=== PATIENT | male | born 1945 | race Native Hawaiian/Other Pacific Islander ===

== ENCOUNTER 2018-05-21 07:48 | Day surgery (SDC) | payer OTHER, BC | END 2018-05-21 09:37 | disposition home or self-care (01) | LOC: OR 07:48 | PROC: 3E0R33Z Introduction of Anti-inflammatory into Spinal Canal, Percutaneous Approach (ICD-10-PCS; principal; 2018-05-21) | PROC: B01BYZZ Fluoroscopy of Spinal Cord using Other Contrast (ICD-10-PCS; 2018-05-21) | DX: M54.16 Radiculopathy, lumbar region (principal); M48.061 Spinal stenosis, lumbar region without neurogenic claudication | CPT/HCPCS: J1020 ==

== ENCOUNTER 2018-09-30 08:39 | Day surgery (SDC) | payer OTHER, BC ==
[~2018-09-30] VITALS: Ht 30.5 cm; Wt 0.5 kg
== END 2018-09-30 10:50 | disposition home or self-care (01) ==
LOC: OR 08:39
PROC: 3E0R33Z Introduction of Anti-inflammatory into Spinal Canal, Percutaneous Approach (ICD-10-PCS; principal; 2018-09-30)
PROC: 3E0R3BZ Introduction of Anesthetic Agent into Spinal Canal, Percutaneous Approach (ICD-10-PCS; 2018-09-30)
DX: M53.3 Sacrococcygeal disorders, not elsewhere classified (principal); M46.1 Sacroiliitis, not elsewhere classified
CPT/HCPCS: J1020; J3490

== ENCOUNTER 2018-10-14 07:32 | Day surgery (SDC) | payer OTHER, BC ==
[~2018-10-14] VITALS: Ht 30.5 cm; Wt 0.5 kg
== END 2018-10-14 08:55 | disposition home or self-care (01) ==
LOC: OR 07:32
PROC: 3E0R33Z Introduction of Anti-inflammatory into Spinal Canal, Percutaneous Approach (ICD-10-PCS; principal; 2018-10-14)
PROC: 3E0R3BZ Introduction of Anesthetic Agent into Spinal Canal, Percutaneous Approach (ICD-10-PCS; 2018-10-14)
DX: M53.3 Sacrococcygeal disorders, not elsewhere classified (principal); M46.1 Sacroiliitis, not elsewhere classified
CPT/HCPCS: J1020; J3490

== ENCOUNTER 2019-01-20 07:16 | Day surgery (SDC) | payer OTHER, BC ==
[~2019-01-20] VITALS: Ht 30.5 cm; Wt 0.5 kg
[2019-01-20 09:13] LABS: PLATELET COUNT 310 K/uL (142-355)
[2019-01-20 09:19] LABS: POTASSIUM 4.1 mmol/L (3.6-5.2)
[2019-01-20 09:30] LABS: PARTIAL THROMBOPLASTIN TIME 29.4 SECONDS (24.5-33.6)
== END 2019-01-20 12:15 | disposition home or self-care (01) ==
LOC: OR 07:16
PROVIDERS: Pain Medicine Interventional Pain Medicine
PROC: 3E0T3TZ Introduction of Destructive Agent into Peripheral Nerves and Plexi, Percutaneous Approach (ICD-10-PCS; principal; 2019-01-20)
DX: M53.3 Sacrococcygeal disorders, not elsewhere classified (principal); M46.1 Sacroiliitis, not elsewhere classified; M47.818 Spondylosis without myelopathy or radiculopathy, sacral and sacrococcygeal region; Z79.899 Other long term (current) drug therapy; Z51.81 Encounter for therapeutic drug level monitoring
CPT/HCPCS: 80053; 85027; 85610; 85730; 93005; J1020; J1170; J2001; J2250; J2405; J2704; J3490

== ENCOUNTER 2019-11-10 09:16 | Day surgery (SDC) | payer OTHER, BC ==
[~2019-11-10] VITALS: Ht 30.5 cm; Wt 0.5 kg
== END 2019-11-10 10:08 | disposition home or self-care (01) ==
LOC: OR 09:16
PROC: 3E0T3BZ Introduction of Anesthetic Agent into Peripheral Nerves and Plexi, Percutaneous Approach (ICD-10-PCS; principal; 2019-11-10)
PROC: 3E0T33Z Introduction of Anti-inflammatory into Peripheral Nerves and Plexi, Percutaneous Approach (ICD-10-PCS; 2019-11-10)
DX: M47.816 Spondylosis without myelopathy or radiculopathy, lumbar region (principal); M47.814 Spondylosis without myelopathy or radiculopathy, thoracic region
CPT/HCPCS: J1100; J2001

== ENCOUNTER 2022-11-05 15:14 | Outpatient (CLI) | payer OTHER, BC ==
[2022-11-05 15:34] LABS: PLATELET COUNT 271 K/uL (142-355)
== END 2022-11-05 21:27 | disposition home or self-care (01) ==
LOC: LAB 15:14
PROVIDERS: ATTEND Internal Medicine
DX: T84.52XA Infection and inflammatory reaction due to internal left hip prosthesis, initial encounter (principal); B95.62 Methicillin resistant Staphylococcus aureus infection as the cause of diseases classified elsewhere; Z45.2 Encounter for adjustment and management of vascular access device; Z79.2 Long term (current) use of antibiotics
CPT/HCPCS: 80053; 80202; 85027; 85652; 86140